=== PATIENT | male | born 1955 | race Caucasian/White ===

== ENCOUNTER 2025-02-11 11:56 | Inpatient (IN) | payer MEDICARE ==
[~2025-02-11] VITALS: Ht 172.7 cm; Wt 80.5 kg
[2025-02-11 12:29] LABS: BASOPHILS ABSOLUTE AUTO 0.08 K/mm3 (0.00-0.23); BASOPHILS PERCENT AUTO 1 % (0-2); EOSINOPHILS ABSOLUTE AUTO 0.36 K/mm3 (0.00-0.68); EOSINOPHILS PERCENT AUTO 5 % (0-6); Hematocrit 33.8 % (37.0-53.0); Hemoglobin 10.9 g/dL (13.5-17.5); IMMATURE GRAN ABSOLUTE AUTO 0.02 K/mm3 (0.00-0.10); IMMATURE GRAN PERCENT AUTO 0 % (0-1); LYMPHOCYTES ABSOLUTE AUTO 1.15 K/mm3 (0.84-5.20); LYMPHOCYTES PERCENT AUTO 16 % (21-46); MONOCYTES ABSOLUTE AUTO 0.81 K/mm3 (0.16-1.47); MONOCYTES PERCENT AUTO 11 % (4-13); Mean Corpuscular HGB Conc 32.2 g/dL (31.5-36.5); Mean Corpuscular Volume 89 fL (80-100); NEUTROPHILS ABSOLUTE AUTO 4.87 K/mm3 (1.96-9.15); NEUTROPHILS PERCENT AUTO 67 % (41-73); NRBC ABSOLUTE 0.00 K/mm3 (0.00-0.02); NRBC Auto 0.0 /100 WBC (0.0-0.2); Platelet Count 451 K/mm3 (150-400); RDW Coefficient Variation 15.5 % (11.7-14.2); RDW Standard Deviation 50.2 fL (35.1-46.3)
[2025-02-11 12:45] LABS: Alanine Aminotransfer (ALT/SGP 84.0 U/L (12-78); Albumin, Blood 1.7 g/dL (3.4-5.0); Albumin/Globulin Ratio 0.6 (0.8-1.8); Anion Gap 4.0 mmol/L (3-11); Aspartate Aminotrans (AST/SGOT 93.0 U/L (12-37); Bilirubin, Total 0.1 mg/dL (0.1-1.0); Blood Urea Nitrogen 14.0 mg/dL (8-24); CO2, Blood 28.0 mmol/L (21-32); Calcium, Blood 7.8 mg/dL (8.5-10.1); Chloride, Blood 112.0 mmol/L (98-108); Creatinine, Blood 1.2 mg/dL (0.60-1.20); Globulin, Blood 2.8 g/dL (2.2-4.0); Glucose, Blood 118.0 mg/dL (70-99); Potassium, Blood 3.3 mmol/L (3.5-5.5); Sodium, Blood 141.0 mmol/L (136-145); Total Protein, Blood 4.5 g/dL (6.4-8.2)
[2025-02-11 15:55] LABS: Anti-Xa UFH, PHA Monitoring <0.10 IU/mL; Prothrombin Time Results 14.9 Sec (9.7-11.5)
[2025-02-11] MEDS ORDERED: Heparin Sodium,Porcine/0.5 NS 500 ML IV SCH (16:00)
[2025-02-11] MEDS ORDERED: Dose Adjust by Pharmacy XX STA ×2 (16:02→23:33)
[2025-02-11] MEDS ORDERED: Furosemide 10 MG / ML 2ML Vial IV SCH (17:00)
[2025-02-11] MEDS ORDERED: LANS30EC PO (18:36)
[2025-02-11] MEDS ORDERED: TAMS.4ER PO (18:37)
[2025-02-11] MEDS ORDERED: PREG200 PO (18:37)
[2025-02-11] MEDS ORDERED: B12-FOLIC ACID1 EACH PO (18:38)
[2025-02-11] MEDS ORDERED: IRON (18:38)
[2025-02-11] MEDS ORDERED: MOVE FREE (18:40)
[2025-02-11] MEDS ORDERED: C COMPLEX1000 M1 PO (18:41)
[2025-02-11] MEDS ORDERED: [UNRECOGNIZED DRUG - OTHER] (18:41)
[2025-02-11 18:42] VITALS: BP 97/63
[2025-02-11] MEDS ORDERED: ZINC (18:42)
[2025-02-11] MEDS ORDERED: CAL (18:42)
[2025-02-11] MEDS ORDERED: MAG (18:42)
--- NOTE | 2025-02-11 18:43 | NUR ---
ARRIVAL TO PCU patient arrived to pcu at 1835. vital signs stable. tele sinus rhythm 60s. patient is alert and oriented x4. neuro is intact. perrla. patient denies chest pain/pressure, pain, or shortness of breath. gi/gu within normal limits. lung sounds clear. skin is clean dry and intact. home med rec is complete.
[2025-02-11] MEDS ORDERED: [UNRECOGNIZED DRUG - OTHER] (19:14)
--- NOTE | 2025-02-11 19:51 | NUR ---
ASSUMPTION OF CARE ASSUMED PT'S CARE AT 1900,EDSIDE REPORT COMPLETED.PT WIDE AWAKE RESTING IN BED,SPOUSE AT BEDSIDE.PLAN OF CARE REVIEWED.HEPARIN INFUSION RATE VERIFIED.PT DENIES CHEST PAIN,DENIES SOB. AT THE BEDSIDE AT THIS TIME SEEING PT.CALL LIGHT AND PT'S IEMS WITHIN REACH.MONITORING ONGOING PER CAREPLAN.
[2025-02-11 21:07] VITALS: BP 97/54
[2025-02-11] MEDS ORDERED: Heparin Sodium 5000 Units/ML 1ML MDV IV ONE (23:35)
[2025-02-12] VITALS (10 sets, daily range): BP systolic 80–114; BP diastolic 46–73
[2025-02-12 05:45] LABS: Hematocrit 31.5 % (37.0-53.0); Hemoglobin 10.3 g/dL (13.5-17.5); Platelet Count 426 K/mm3 (150-400)
[2025-02-12 06:05] LABS: Anion Gap 6 mmol/L (3-11); Blood Urea Nitrogen 11 mg/dL (8-24); CHOL/HDL RATIO 3.4; CO2, Blood 29 mmol/L (21-32); Calcium, Blood 7.4 mg/dL (8.5-10.1); Chloride, Blood 112 mmol/L (98-108); Cholesterol 69 mg/dL (50-200); Creatinine, Blood 1.23 mg/dL (0.60-1.20); Glucose, Blood 90 mg/dL (70-99); HDL Cholesterol 20 mg/dL (>39); LDL/HDL RATIO 1.5; Low Density Lipoprotein Chol 31 mg/dL (0-110); Potassium, Blood 3.3 mmol/L (3.5-5.5); Sodium, Blood 144 mmol/L (136-145); Triglycerides 91 mg/dL (30-160); Very Low Density Lipoprot Chol 18 mg/dL (6-32)
--- NOTE | 2025-02-12 06:23 | NUR ---
PT MONITORED DURING THE SHIFT,BP SOFT THROUGHOUT THE NIGHT SBP 80'S-90'S WITH A MAP >65.CONTINUES ON HEPARIN GTT ORDERED.PT UP TO THE BATHROOM WITH SBA .PT HAD 6 LOOSE BMS.PT RESTING IN BED WATCHING TV,DENIES CHEST PAIN,DENIES GENERALIZED PAIN,DENIES NEEDS AT THIS TIME.CALL LIGHT AND PT'S ITEMS WITHIN REACH.MONITORING ONGOING PER CAREPLAN.
--- NOTE | 2025-02-12 09:51 | NUR ---
am note this rn assumed care at 0700. vital signs stable. tele sinus rhythm 60-70s. patient is alert and oriented x4. neuro is intact. perrla. patient is independent in the room and is able to make needs known. patient denies chest pain/pressure, shortness of breath or pain. patient bilateral upper lungs are clear and lower lobes dim crackles. patient skin is clean dry and intact. gi/gu within normal limits. see shift assessment for further detials. plan is to go back from an angio today and patient is aware. md santos in the room and discussed the plan with the patient this morning.
[2025-02-12] MEDS ORDERED: NS 2,000 ML IV ONE (10:11)
[2025-02-12] MEDS ORDERED: Heparin Sodium 1000 Units/ML 10ML MDV ONE (10:11)
[2025-02-12] MEDS ORDERED: Verapamil HCL 2.5 MG/ML 2ML Injection ONE (10:11)
[2025-02-12] MEDS ORDERED: NS 250 ML IV ONE (10:11)
[2025-02-12] MEDS ORDERED: FentaNYL Citrate 50 MCG/ML 2 ML Injection ONE (10:29)
[2025-02-12] MEDS ORDERED: Midazolam HCl 1MG / ML 2ML Vial ONE (10:30)
--- NOTE | 2025-02-12 10:45 | NUR ---
left for angio patient left at 1025 for angio
--- NOTE | 2025-02-12 11:30 | NUR ---
RETURN TO ROOM patient in room at 1120. vital signs stable. tele sinus rhythm 68. spo2 >90% on room air. patient has a right radial site with tr band in place with 8cc and site is soft nontender no bleeding or hematoma. plan to restart heparin once tr band is removed. resume at rate when stopped. md jiménez in the room and update patient and family that there is an accepting doctor and bed in [place] and accepting doctor is md leavitt
--- NOTE | 2025-02-12 12:27 | NUR ---
update this rn gave report to [place] nurse. plan for patient to leave via ground in 30mins. this rn updated patient and family
--- NOTE | 2025-02-12 12:31 | NUR ---
TR BAND this rn remvoed 2cc from tr band. 6cc in band
--- NOTE | 2025-02-12 12:52 | NUR ---
update tr band 2cc out 4cc remains
--- NOTE | 2025-02-12 13:08 | NUR ---
UPDATE TR BAND this rn removed 2cc in tr band. 2cc remains in band
--- NOTE | 2025-02-12 13:49 | NUR ---
DISCHARGE/TRANSFER TO [place] tr band fully deflated at the time of depature. tr band fully delfatted at 1337 and can be removed at 1437 and this rn informed ems. ems verbalized understanding. patient left with belongings and in no distress
== END 2025-02-12 13:43 | disposition home or self-care (01) | DRG 280 ==
LOC: ER 11:56 → PCU 11:57
PROVIDERS: Emergency Medicine; ADMIT Internal Medicine
PROC: B2111ZZ Fluoroscopy of Multiple Coronary Arteries using Low Osmolar Contrast (ICD-10-PCS; principal; 2025-02-12)
PROC: 4A023N7 Measurement of Cardiac Sampling and Pressure, Left Heart, Percutaneous Approach (ICD-10-PCS; 2025-02-12)
DX: I21.4 Non-ST elevation (NSTEMI) myocardial infarction (principal); I50.33 Acute on chronic diastolic (congestive) heart failure; K50.90 Crohn's disease, unspecified, without complications; K21.9 Gastro-esophageal reflux disease without esophagitis; D64.9 Anemia, unspecified; E87.6 Hypokalemia; I25.10 Atherosclerotic heart disease of native coronary artery without angina pectoris; Z87.19 Personal history of other diseases of the digestive system; Z91.048 Other nonmedicinal substance allergy status; Z88.8 Allergy status to other drugs, medicaments and biological substances
CPT/HCPCS: 36415; 71045; 76937; 80048; 80053; 80061; 83880; 84484; 85014; 85018; 85025; 85049; 85520; 85610; 85730; 93005; 93010; 93306; 93458; 96365; 96366; 96375; 96376; 99152; 99153; 99285-25; A9270; C1769; C1887; C1894; G0378; J1644; J1938; J2250; J3010; J7030; J7050; Q9967